=== PATIENT | female | born 1995 | race Caucasian/White ===

== ENCOUNTER → 2022-10-14 | Outpatient (CLI) | payer MEDICAID ==
[~2022-10-14] MED LIST: ASPI81CH43 GT; ATO40T OR; CITA10TA8 OR; OMEP20TA44 PO; RISP0.5T45 OR
== END | disposition home or self-care (01) ==
LOC: Rad HDHVI 16:04
PROVIDERS: ATTEND Internal Medicine Cardiovascular Disease
DX: I34.0 Nonrheumatic mitral (valve) insufficiency (principal); R00.2 Palpitations; R07.89 Other chest pain
CPT/HCPCS: 93306